=== PATIENT | female | born 1960 | race Caucasian/White ===

== ENCOUNTER 2023-12-26 12:20 | Emergency (ER) | payer OTHER, SELFPAY ==
[2023-12-26] VITALS (10 sets, daily range): BP systolic 118–145; BP diastolic 90–97; PULSE 69–103; RESP 16; TEMP 36.8; O2SAT 95–98; BMI 29.0
[2023-12-26 16:08] LABS: Troponin, Point-of-Care* 0.02 ng/ml (0.01-0.04)
[2023-12-26 16:09] LABS: Basophils Absolute Auto 0.02 K/uL (0.00-0.30); Basophils Percent Auto 0.2 % (0.0-3.0); Eosinophils Absolute Auto 0.09 K/uL (0.00-0.50); Eosinophils Percent Auto 1.1 % (0.0-7.0); Hematocrit 38.5 % (33.0-51.0); Hemoglobin* 12.9 gm/dL (12.0-16.0); Lymphocytes Percent Auto 13.7 % (20-44); Mean Corpuscular HGB Conc 34 gm/dL (32-36); Mean Corpuscular Hemoglobin 31 pg (26-34); Mean Corpuscular Volume 92 fL (80-100); Monocytes Percent Auto 8.4 % (0.0-11.0); Neutrophils Percent Auto 76.6 % (42.0-72.0); Platelet Count* 191 K/uL (140-440); RDW Coefficient of Variation % 12.9 % (11.5-15.5); Red Blood Count 4.18 m/uL (4.00-5.20); White Blood Count* 8.11 K/uL (4.50-11.00)
[2023-12-26 16:10] LABS: Appearance Urine Cloudy (Clear); Bilirubin Urine Negative (Negative); Blood Urine 2+ (Negative); Color Urine Yellow (Yellow); Glucose Urine Negative (Negative); Ketones Urine 2+ (Negative); Leukocyte Esterase Urine 1+ (Negative); Nitrite Urine Positive (Negative); Protein Urine Negative (Negative); pH Urine 6.5 (5.0-8.5)
[2023-12-26 16:11] LABS: Slide Review Reflex No
[2023-12-26 16:21] LABS: Albumin* 4.2 g/dL (3.3-5.0); Chloride* 103 mmol/L (96-114); Potassium* 3.8 mmol/L (3.6-5.1); Sodium* 135 mmol/L (135-149)
[2023-12-26 16:23] LABS: Creatinine* 0.8 mg/dL (0.5-1.5); Est. Creatinine Clearance* 56.72; Estimated Glomerular Filt Rate 83 ml/min
[2023-12-26 16:24] LABS: Alanine Aminotransferase* 105 U/L (4-35); Alkaline Phosphatase* 219 U/L (40-150); Anion Gap 11 mEq/L (7-15); Aspartate Amino Transferase* 113 U/L (12-35); Bilirubin Total* 1.3 mg/dL (0.1-1.5); Blood Urea Nitrogen* 17 mg/dL (7-30); Calcium* 9.5 mg/dL (8.4-10.6); Carbon Dioxide* 21 mmol/L (20-32); Glucose* 105 mg/dL (60-115); Total Protein* 7.5 g/dL (6.0-8.3)
[2023-12-26 16:38] LABS: Bacteria Urine Many; Squamous Epithelial Cell Urine Few (None-Few)
[2023-12-26 16:46] LABS: PCR FLU A Negative PCR FLU A (Negative); PCR FLU B Negative PCR FLU B (Negative); PCR RSV Negative PCR RSV (Negative); SARS PCR* Negative SARS-CoV-2 (Negative)
--- NOTE | 2023-12-26 16:51 | ED_ITS ---
HPI - General Adult General Date Seen: 12/26/23 Chief complaint: Dizziness/Vertigo Stated complaint: dizziness Time Seen by Provider: 12/26/23 15:03 Source: patient Mode of arrival: ambulatory Limitations: no limitations History of Present Illness HPI narrative: Patient is a 63-year-old female is a history of high blood pressure and high cholesterol presenting to the emergency department for lightheadedness. She states the symptoms have been going on since Friday. Says on Friday she was feeling lightheaded while she [place] walking [place] with her daughters. She did drink some water in symptoms seem to persist throughout the day. She did have some vomiting 2 days ago but has not had any since then. She states she still feels lightheadedness symptoms just are not getting better. She denies dizziness and specifically states she feels lightheaded and like she just wants to lay down. Denies ever having symptoms like this before. Denies fevers, chills, chest pain, shortness of breath, headache, vision changes, weakness, numbness, abdominal pain. States she has not passed out at all and she does drink a lot a water according to her. No other concerns noted Related Data Previous Rx's Medication Instructions Recorded cephalexin 250 mg capsule 250 mg PO QID #20 caps 12/26/23 Allergies Allergy/AdvReac Type Severity Reaction Status Date / Time No Known Drug Allergies Allergy Verified 12/26/23 13:01 Review of Systems Status of ROS: Reports: 10 or more systems reviewed and unremarkable except as noted in History and below PFS PFS Social History Non-prescribed substance use: denies use Exam Narrative: Exam Narrative: Const: Well-nourished, Well-developed, in mild distress Eyes: PERRL, no conjunctival injection, and symmetrical lids HENT: Atraumatic external nose and ears. Moist mucous membranes. Neck: Symmetric, trachea midline, No thyromegaly. CVS: RRR, No murmurs or gallops. Peripheral pulses 2+ and equal in all extremities RESP: Unlabored respiratory effort. Clear to auscultation bilaterally. GI: Nontender/Nondistended, No rebound or guarding. MSK:Extremities w/o deformity, Normal Active ROM Skin: Warm, Dry. No rashes or lesions. Neuro: Normal Muscle tone, No focal neurological deficits. Psych: Awake, Alert, & Oriented x3. Appropriate mood and affect. Const: Vital Signs, click to edit/add: Vital Signs - 24 hr 12/26/23 12:56 12/26/23 16:18 12/26/23 16:30 Temperature 98.3 F Pulse Rate 71 85 Pulse Rate [Right Pulse Oximeter] 89 Pulse Rate [orthos tatic lying Pulse Oximeter] Pulse Rate [orthos tatic sitting Puls e Oximeter] Pulse Rate [orthos tatic standing] Respiratory Rate 16 Blood Pressure Blood Pressure [Ri ght Upper Arm] 141/97 H Blood Pressure [or thostatic lying Ri ght Arm] Blood Pressure [or thostatic sitting Right Arm] Blood Pressure [or thostatic standing Right Arm] Pulse Oximetry 98 97 [facility] 12/26/23 16:45 12/26/23 17:00 12/26/23 17:00 Temperature Pulse Rate 87 75 Pulse Rate [Right Pulse Oximeter] Pulse Rate [orthos tatic lying Pulse Oximeter] 69 Pulse Rate [orthos tatic sitting Puls e Oximeter] 84 Pulse Rate [orthos tatic standing] 103 H Respiratory Rate Blood Pressure 135/94 H Blood Pressure [Ri ght Upper Arm] Blood Pressure [or thostatic lying Ri ght Arm] 135/94 H Blood Pressure [or thostatic sitting Right Arm] 145/93 H Blood Pressure [or thostatic standing Right Arm] 118/90 H Pulse Oximetry 97 95 Oxygen Delivery Me thod 12/26/23 17:01 12/26/23 17:02 12/26/23 17:03 Temperature Pulse Rate 89 95 103 H Pulse Rate [Right Pulse Oximeter] Pulse Rate [orthos tatic lying Pulse Oximeter] Pulse Rate [orthos tatic sitting Puls e Oximeter] Pulse Rate [orthos tatic standing] Respiratory Rate Blood Pressure 145/93 H 118/90 H Blood Pressure [Ri ght Upper Arm] Blood Pressure [or thostatic lying Ri ght Arm] Blood Pressure [or thostatic sitting Right Arm] Blood Pressure [or thostatic standing Right Arm] Pulse Oximetry 96 96 97 Oxygen Delivery Me thod 12/26/23 17:15 12/26/23 17:30 Temperature Pulse Rate 82 70 Pulse Rate [Right Pulse Oximeter] Pulse Rate [orthos tatic lying Pulse Oximeter] Pulse Rate [orthos tatic sitting Puls e Oximeter] Pulse Rate [orthos tatic standing] Respiratory Rate Blood Pressure Blood Pressure [Ri ght Upper Arm] Blood Pressure [or thostatic lying Ri ght Arm] Blood Pressure [or thostatic sitting Right Arm] Blood Pressure [or thostatic standing Right Arm] Pulse Oximetry 97 97 Oxygen Delivery Me thod Course Vital Signs Vital signs: Initial Vital Signs Temperature 98.3 F 12/26/23 12:56 Temperature Source Temporal Artery Scan 12/26/23 12:56 Pulse Rate 89 12/26/23 12:56 Pulse Rhythm Regular 12/26/23 12:56 Pulse Strength 3+ Normal 12/26/23 12:56 Respiratory Rate 16 12/26/23 12:56 Blood Pressure 141/97 H 12/26/23 12:56 Blood Pressure Mean 111 H 12/26/23 12:56 Blood Pressure Position Sitting 12/26/23 12:56 Pulse Oximetry 98 12/26/23 12:56 Oxygen Delivery Method Room Air 12/26/23 12:56 Vital Signs Temperature 98.3 F 12/26/23 12:56 Pulse Rate 89 12/26/23 12:56 Respiratory Rate 16 12/26/23 12:56 Blood Pressure 141/97 H 12/26/23 12:56 Pulse Oximetry 98 12/26/23 12:56 Oxygen Delivery Method Room Air 12/26/23 12:56 Temperature 98.3 F 12/26/23 12:56 Pulse Rate 70 12/26/23 17:30 Respiratory Rate 16 12/26/23 12:56 Blood Pressure 118/90 H 12/26/23 17:03 Pulse Oximetry 97 12/26/23 17:30 Oxygen Delivery Method Room Air 12/26/23 12:56 Medications Administered Medications: Discontinued Medications Generic Name Dose Route Start Last Admin Trade Name Freq PRN Reason Stop Dose Admin Cephalexin HCl 500 mg 12/26/23 17:43 12/26/23 17:55 Cephalexin 500 Mg Capsule PO 12/26/23 17:44 500 mg ONCE ONE Administration Lactated Ringer's 1,000 mls @ 1,000 mls/hr 12/26/23 17:09 12/26/23 17:16 Lactated Ringers 1000 Ml IV 12/26/23 18:08 1,000 mls/hr .Q1H ONE Administration Medical Decision Making MDM Narrative Medical decision making narrative: Patient is a 63-year-old year old female presenting to the emergency department for lightheadedness. She is very specific in saying she feels lightheaded and not dizzy. Denies symptoms like this previously. She has not had any episodes of syncope yet. This time differential includes ACS, infection, electrolyte abnormalities, orthostatic hypotension. She is feeling symptomatic while sitting in the bed at this time. CBC, returned showing no concerning abnormalities. Her CMP returned with elevated liver enzymes and urinalysis shows signs of UTI. Patient does have a known lesion on her liver seen on ultrasound is scheduled to get CT scan of it. I do not believe this needs to be further worked up emergency department as she is not having any abdominal pain or abdominal symptoms. COVID/flu/RSV is negative. EKG and troponin showed no concerning findings. We did do orthostatic blood pressures and they were positive and she was feeling symptomatic. 1 L fluids were given. After this she was feeling much better and was no longer symptomatic when standing up. She states she feels back to normal. Keflex was given emergency department. Prescription Keflex was sent to her pharmacy. She is otherwise doing walking discharged home. Lab Data Labs: Lab Results 12/26/23 12/26/23 Range/Units 15:50 16:00 WBC 8.11 (4.50-11.00) K/uL RBC 4.18 (4.00-5.20) m/uL Hgb 12.9 (12.0-16.0) gm/dL Hct 38.5 (33.0-51.0) % MCV 92 (80-100) fL MCH 31 (26-34) pg MCHC 34 (32-36) gm/dL RDW Coeff of Jaskaran 12.9 (11.5-15.5) % Plt Count 191 (140-440) K/uL Neut % (Auto) 76.6 H (42.0-72.0) % Lymph % (Auto) 13.7 L (20-44) % [place] % (Auto) 8.4 (0.0-11.0) % Eos % (Auto) 1.1 (0.0-7.0) % Baso % (Auto) 0.2 (0.0-3.0) % Neut # (Auto) 6.20 (1.7-7.0) K/uL Lymph # (Auto) 1.10 (0.90-2.90) K/uL [place] # (Auto) 0.70 (0.00-0.90) K/UL Eos # (Auto) 0.09 (0.00-0.50) K/uL Baso # (Auto) 0.02 (0.00-0.30) K/uL Abs Immat Gran (auto) 0.00 (0.00-0.30) K/uL Imm/Tot Granulo (auto) 0.0 % Sodium 135 (135-149) mmol/L Potassium 3.8 (3.6-5.1) mmol/L Chloride 103 (96-114) mmol/L Carbon Dioxide 21 (20-32) mmol/L Anion Gap 11 (7-15) mEq/L BUN 17 (7-30) mg/dL Creatinine 0.8 (0.5-1.5) mg/dL Estimated Creat Clear 56.72 Estimated GFR 83 ml/min Glucose 105 (60-115) mg/dL Calcium 9.5 (8.4-10.6) mg/dL Total Bilirubin 1.3 (0.1-1.5) mg/dL AST 113 H (12-35) U/L ALT 105 H (4-35) U/L Alkaline Phosphatase 219 H (40-150) U/L Total Protein 7.5 (6.0-8.3) g/dL Albumin 4.2 (3.3-5.0) g/dL Urine Color Yellow (Yellow) Urine Appearance Cloudy A (Clear) Urine pH 6.5 (5.0-8.5) Ur Specific [place] 1.020 (1.000-1.030) Urine Protein Negative (Negative) Urine Glucose (UA) Negative (Negative) Urine Ketones 2+ A (Negative) Urine Blood 2+ A (Negative) Urine Nitrite Positive A (Negative) Urine Bilirubin Negative (Negative) Urine Urobilinogen 2.0 A (0.2-1.0) Ur Leukocyte Esterase 1+ A (Negative) Urine RBC 2-5 A (0-2) Urine WBC 10-25 A (0-5) Ur Squamous Epith Cells Few (None-Few) Urine Bacteria Many A (None) SARS-CoV-2 (PCR) Negative SARS-CoV-2 (Negative) Influenza Type A (PCR) Negative PCR FLU A (Negative) Influenza Type B (PCR) Negative PCR FLU B (Negative) RSV (PCR) Negative PCR RSV (Negative) POC Troponin I 0.02 (0.01-0.04) ng/ml ECG Data Attestation: I personally reviewed and interpreted this ECG as follows: Prior ECG tracings: not available for review Interpretation: Normal sinus rhythm rate 75 beats per minute, normal intervals, normal axis, no ST or T-wave abnormalities Discharge Plan Discharge Clinical Impression: Near syncope UTI (urinary tract infection) Qualifiers: Urinary tract infection type: acute cystitis Hematuria presence: with hematuria Qualified Code(s): N30.01 - Acute cystitis with hematuria Patient Disposition: Home, Self-Care Condition: Stable Instructions: Urinary Tract Infection in Women (DC), Syncope (ED) Additional Instructions: Make sure you stay well-hydrated as abuse primary symptoms were due to dehydration. Take the antibiotics as directed for your urinary tract infection. Make sure to follow-up with your primary care provider about your liver enzymes and get that CT that she said they are planning to to order. Return to emergency department for new or worsening symptoms Prescriptions: New cephalexin 250 mg capsule 250 mg PO QID Qty: 20 0RF Follow Up/Referrals: Provider,Not a Local [Primary Care Provider] - Stand Alone Forms: Culture Kitchen Info Instructions
[2023-12-26] MEDS: LACTATED RINGERS 1000 ML 1,000 ML IV (17:16)
[2023-12-26] MEDS: cephALEXin 500 MG CAPSULE PO (17:55)
== END 2023-12-26 18:28 | disposition home or self-care (01) ==
PROVIDERS: Emergency Provider Student in an Organized Health Care Education/Training Program
DX: N30.01 Acute cystitis with hematuria (principal)
CPT/HCPCS: 36415; 80053; 81001; 84484; 85025; 87086; 87186; 87631; 93005; 99283; 99284; A9270; J7120